=== PATIENT | female | born 1980 | race Two or more races ===

== ENCOUNTER 2022-04-12 09:45 | Inpatient (IN) | payer OTHER ==
[~2022-04-12] VITALS: Ht 160 cm; Wt 59.9 kg
[~2022-04-12 09:45] MED LIST: MULTIVITAM PO
[2022-04-17] MEDS ORDERED: MAXIMUM D3325 MCG (14:22)
[2022-04-17] MEDS ORDERED: B-122500 MCG (14:22)
[2022-04-17] MEDS ORDERED: MULTI VITAMIN1 EACH (14:23)
[2022-04-21] MEDS ORDERED: LEVSIN/SL0.125 MG SL (14:59)
[2022-04-21] MEDS ORDERED: INTESTINEX680 M1 PO (14:59)
[2022-04-21] MEDS ORDERED: SIMETHICONE80 MG PO (14:59)
[2022-04-21] MEDS ORDERED: NEURONTIN300 MG PO (14:59)
[2022-04-21] MEDS ORDERED: TRAMADOL HCL50 MG PO (15:01)
== END 2022-04-21 16:40 | disposition home or self-care (01) | DRG 330 ==
LOC: SURH 04-17 05:30 → O/R 04-17 05:30 → SURH 04-17 09:45
PROVIDERS: ADMIT Surgery; ATTEND Surgery
PROC: 0DBP4ZZ Excision of Rectum, Percutaneous Endoscopic Approach (ICD-10-PCS; 2022-04-17)
PROC: 0DTN4ZZ Resection of Sigmoid Colon, Percutaneous Endoscopic Approach (ICD-10-PCS; 2022-04-17)
PROC: 07BC4ZZ Excision of Pelvis Lymphatic, Percutaneous Endoscopic Approach (ICD-10-PCS; 2022-04-17)
PROC: 0UQG4ZZ Repair Vagina, Percutaneous Endoscopic Approach (ICD-10-PCS; 2022-04-17)
PROC: 0D1B4Z4 Bypass Ileum to Cutaneous, Percutaneous Endoscopic Approach (ICD-10-PCS; principal; 2022-04-17 11:00)
DX: C20 Malignant neoplasm of rectum (principal); K62.5 Hemorrhage of anus and rectum; N99.72 Accidental puncture and laceration of a genitourinary system organ or structure during other procedure; N80.42 Endometriosis of rectovaginal septum with involvement of vagina; N80.519 Endometriosis of the rectum, unspecified depth; R59.0 Localized enlarged lymph nodes; K59.09 Other constipation

== ENCOUNTER 2022-08-31 08:52 | Day surgery (SDC) | payer OTHER ==
[~2022-08-31] VITALS: Ht 160 cm; Wt 54.9 kg
[~2022-08-31 08:52] MED LIST changes: +B-122500 MCG; +INTESTINEX680 M1 PO; +LEVSIN/SL0.125 MG SL; +MAXIMUM D3325 MCG; +MULTI VITAMIN1 EACH; +NEURONTIN300 MG PO; +SIMETHICONE80 MG PO; +TRAMADOL HCL50 MG PO
[2022-09-05] MEDS ORDERED: ACETAMINOPHEN650 MG (08:54)
== END 2022-08-31 12:00 | disposition home or self-care (01) ==
LOC: CIR.AMB 08:52 → O/R 08:52 → SURG 08:52 → CIR.AMB 12:00 → EDSTATUS 12:15 → SURG 12:15 → O/R 09-04 14:35
PROVIDERS: ATTEND Surgery
DX: C20 Malignant neoplasm of rectum (principal); Z53.8 Procedure and treatment not carried out for other reasons; U07.1 COVID-19

== ENCOUNTER 2022-09-17 11:19 | Inpatient (IN) | payer OTHER ==
[~2022-09-17] VITALS: Ht 160 cm; Wt 54.4 kg
[~2022-09-17 11:19] MED LIST changes: +ACETAMINOPHEN650 MG
[2022-09-18] MEDS ORDERED: VITAMIN D PO (14:21)
[2022-09-24] MEDS ORDERED: OMEPRAZOLE20 MG (08:54)
[2022-09-28] MEDS ORDERED: ACETAMINOPHEN500 M2 PO (11:05)
[2022-09-28] MEDS ORDERED: NEURONTIN300 MG PO (11:05)
[2022-09-28] MEDS ORDERED: INTESTINEX680 M1 PO (11:05)
== END 2022-09-28 12:23 | disposition home or self-care (01) | DRG 348 ==
LOC: SURH 09-21 11:30 → O/R 09-21 15:13 → SURG 09-21 19:56 → SURH 09-21 20:33
PROVIDERS: ADMIT Surgery; ATTEND Surgery
PROC: 0DBB4ZZ Excision of Ileum, Percutaneous Endoscopic Approach (ICD-10-PCS; principal; 2022-09-21 11:30)
DX: C20 Malignant neoplasm of rectum (principal); K62.5 Hemorrhage of anus and rectum; K59.09 Other constipation

== ENCOUNTER 2023-10-05 15:52 | Emergency (ER) | payer OTHER ==
[~2023-10-05] VITALS: Ht 160 cm; Wt 54.9 kg
[~2023-10-05 15:52] MED LIST changes: +ACETAMINOPHEN500 M2 PO; +OMEPRAZOLE20 MG; +VITAMIN D PO
[2023-10-05 20:15] LABS: HEMATOCRIT 38.9 % (36.0-45.00); HEMOGLOBIN 13.3 g/dL (12.0-15.00); MEAN CELL VOLUME 93.6 fL (80.00-100.00); MEAN CORPUSCULAR HGB CONC 34.1 g/dl (32.0-36.0); PLATELET COUNT 165 K/uL (150-450); RED BLOOD COUNT 4.15 M/uL (4.00-6.00); RED CELL DISTRIBUTION WIDTH 13.5 % (11.5-14.5)
[2023-10-05 20:39] LABS: ALBUMIN 4.3 gm/dL (3.4-5.0); BILIRUBIN TOTAL 0.47 mg/dL (0.3-1.2); CALCIUM 9.5 mg/dL (8.5-10.1); CREATININE SERUM 0.86 mg/dL (0.55-1.02); GFR 72.02; POTASSIUM 3.95 mEq/L (3.5-5.1); TOTAL PROTEIN 8.3 gm/dL (6.4-8.2)
[2023-10-05 20:49] LABS: PH,URINE 5.5 (5.0-8.0); URINE APPEARANCE Clear; URINE BILIRRUBIN Negative (NEGATIVE); URINE BLOOD Moderate; URINE COLOR Yellow; URINE GLUCOSE Negative (NEGATIVE); URINE LEUKOCYTE Negative; URINE NITRATE Negative; URINE PROTEIN Trace (NEGATIVE); URINE UROBILINOGEN 0.2 E.U./dl
[2023-10-05 20:55] LABS: URINE BACTERIA 78.1 uL (0.0-1933); URINE EPITHELIAL CELLS 9.4 uL (0.0-38.8); URINE RBC 58.3 uL (0.0-20.8); URINE WBC 13.9 uL (0.0-23.2)
[2023-10-06] MEDS ORDERED: FAMOTIDINE/PF 20 MG/2 ML VIAL IV ONE (01:45)
[2023-10-06] MEDS ORDERED: 0.9 % SODIUM CHLORIDE 1,000 ML IV SCH (01:45)
[2023-10-06] MEDS ORDERED: ONDANSETRON HCL 2 MG/ML VIAL IV ONE (01:45)
[2023-10-06] MEDS ORDERED: HYOSCYAMINE SULFATE 0.125 MG TAB.SUBL SL ONE (02:00)
== END 2023-10-06 19:12 | disposition home or self-care (01) ==
LOC: ER 15:53
PROVIDERS: Emergency Medicine
DX: K52.89 Other specified noninfective gastroenteritis and colitis (principal); Z88.8 Allergy status to other drugs, medicaments and biological substances; Z91.013 Allergy to seafood; Z85.038 Personal history of other malignant neoplasm of large intestine